=== PATIENT | male | born 1980 | race African-American/Black ===

== ENCOUNTER 2019-08-10 10:19 | Inpatient (IN) | payer OTHER ==
[2019-08-10 11:56] VITALS: BMI 22.9
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
[2019-08-10] MEDS ORDERED: hydrOXYzine PAMOATE 25 MG CAPSULE (FP) PO PRN (12:54)
[2019-08-10] MEDS ORDERED: MAG HYDROX/AL HYDROX/SIMETH 30 ML UNIT-DOSE CUP PO PRN (12:54)
[2019-08-10] MEDS ORDERED: MAGNESIUM HYDROX 2400MG/30ML ORAL SUSPENSION 30 ML CUP PO PRN (12:54)
[2019-08-10] MEDS ORDERED: MENTHOL/PHENOL 1 EACH UD MM PRN (12:54)
[2019-08-10] MEDS ORDERED: IBUPROFEN 400 MG TABLET (FP) PO PRN (12:54)
[2019-08-10] MEDS ORDERED: METHOCARBAMOL 500 MG TABLET PO PRN (12:54)
[2019-08-10] MEDS ORDERED: MAGNESIUM CITRATE 300 ML BOTTLE PO PRN (12:54)
[2019-08-10] MEDS ORDERED: BISMUTH SUBSALICYLATE 524 MG/30 ML UD PO PRN (12:54)
[2019-08-10] MEDS ORDERED: ACETAMINOPHEN 325 MG TABLET (FP) PO PRN ×2 (12:54)
[2019-08-10] MEDS ORDERED: MELATONIN 5 MG TABLETS PO PRN (12:54)
[2019-08-10] MEDS ORDERED: diazePAM 5 MG TABLET PO PRN (12:55)
--- NOTE | 2019-08-10 14:52 | EKG ---
Test Reason : Blood Pressure : / mmHG Vent. Rate : 083 BPM Atrial Rate : 083 BPM P-R Int : 154 ms QRS Dur : 088 ms QT Int : 384 ms P-R-T Axes : 072 -11 015 degrees QTc Int : 451 ms NORMAL SINUS RHYTHM LEFT ATRIAL ENLARGEMENT LEFT VENTRICULAR HYPERTROPHY INCOMPLETE RBBB SEPTAL INFARCT , AGE UNDETERMINED ABNORMAL ECG NO PREVIOUS ECGS AVAILABLE Confirmed by MD ABRAHAM, KEN ([id number]) on 08/10/2019 2:52:16 PM Referred By: ALBERTA Confirmed By:KEN ROSARIO MD
[2019-08-10] MEDS: diazePAM 5 MG TABLET PO SCH ×2 (17:10→22:17)
[2019-08-10] MEDS ORDERED: THIAMINE HCL 100 MG TABLET (FP) PO SCH (22:00)
[2019-08-11] MEDS: diazePAM 5 MG TABLET PO SCH (05:59)
[2019-08-11] MEDS ORDERED: diazePAM 5 MG TABLET PO SCH (10:00)
[2019-08-11] MEDS ORDERED: PRENATAL VITAMINS W/ FOLIC ACID TABLET (FP) PO SCH (10:00)
[2019-08-11 10:10] LABS: HEMOGLOBIN 12.7 GM/dL (11.7-16.9); MCH 32.2 pg (25.7-33.7); MCHC 33.3 g/dl (32.0-35.9); MEAN CELL VOLUME 96.7 fl (80-96); MEAN PLT VOLUME 8.3 fl (7.5-11.1); PLATELET COUNT 307 K/MM3 (134-434); RBC 3.93 M/mm3 (4.00-5.60); RDW 16.2 % (11.9-15.9); WHITE BLOOD COUNT 6.3 K/mm3 (4.0-10.0)
[2019-08-11 10:23] LABS: ALBUMIN 3.1 g/dl (3.4-5.0); BILIRUBIN,TOTAL 0.4 mg/dL (0.2-1); BLOOD UREA NITROGEN 16.4 mg/dL (7-18); CALCIUM 8.8 mg/dL (8.5-10.1); POTASSIUM 3.9 mmol/L (3.5-5.1); TOT PROT 6.4 g/dl (6.4-8.2)
--- NOTE | 2019-08-11 12:25 | PN ---
[facility] CIWA - CIWA Score Nausea/Vomitin-Mild Nausea/No Vomiting Muscle Tremors: 3 Anxiety: 2 Agitation: 2 Paroxysmal Sweats: 1-Minimal Palms Moist Orientation: 0-Oriented Tacttile Disturbances: 0-None Auditory Disturbances: 0-None Visual Disturbances: 0-None Headache: 0-None Present CIWA-Ar Total Score: 9 S COWS - Scale Resting Pulse: 0= [place] 80 or Below Sweatin= No chills or Flushing Restless Observation: 0= Sits Still Pupil Size: 0= Normal to Room Light Bone or Joint Aches: 0= None Runny Nose/ Eye Tearin= None GI Upset > 30mins: 2= Nausea/Diarrhea Tremor Observation of Outstretched Hands: 2= Slight Tremor Visible Yawning Observation: 0= None Anxiety or Irritability: 2=Irritable/Anxious Goose Flesh Skin: 0=Smooth Skin COWS Score: 6 S Progress Note (SOAP) Subjective: 28 years old male admitted on 08/10/19 for alcohol and opiate withdrawal sx management treating with valium detox regiment states that cocaine is the main drug for Mr Mayes patient is doing ok today feeling tired "I need rest" prefers to stay in bed today that "haven't slept for a while" reports in [facility] [place]note 3[facility] out patient program for addiction medical and mental care patient prefers to returning to [facility]note 3[facility] program after "resting" in detox Objective: 08/11/19 12:30 Vital Signs Temperature 97.0 F L 08/11/19 08:40 Pulse Rate 77 08/11/19 08:40 Respiratory Rate 18 08/11/19 08:40 Blood Pressure 126/92 08/11/19 08:40 O2 Sat by Pulse Oximetry (%) Laboratory Last Values WBC 6.3 K/mm3 (4.0-10.0) 08/11/19 07:30 RBC 3.93 M/mm3 (4.00-5.60) L 08/11/19 07:30 Hgb 12.7 GM/dL (11.7-16.9) 08/11/19 07:30 Hct 38.0 % (35.4-49) 08/11/19 07:30 MCV 96.7 fl (80-96) H 08/11/19 07:30 MCH 32.2 pg (25.7-33.7) 08/11/19 07:30 MCHC 33.3 g/dl (32.0-35.9) 08/11/19 07:30 RDW 16.2 % (11.9-15.9) H 08/11/19 07:30 Plt Count 307 K/MM3 (134-434) 08/11/19 07:30 MPV 8.3 fl (7.5-11.1) 08/11/19 07:30 Sodium 139 mmol/L (136-145) 08/11/19 07:30 Potassium 3.9 mmol/L (3.5-5.1) 08/11/19 07:30 Chloride 106 mmol/L (98-107) 08/11/19 07:30 Carbon Dioxide 27 mmol/L (21-32) 08/11/19 07:30 Anion Gap 5 MMOL/L (8-16) L 08/11/19 07:30 BUN 16.4 mg/dL (7-18) 08/11/19 07:30 Creatinine 1.0 mg/dL (0.55-1.3) 08/11/19 07:30 Est GFR (CKD-EPI)AfAm 110.17 08/11/19 07:30 Est GFR (CKD-EPI)NonAf 95.05 08/11/19 07:30 Random Glucose 100 mg/dL (74-106) 08/11/19 07:30 Calcium 8.8 mg/dL (8.5-10.1) 08/11/19 07:30 Total Bilirubin 0.4 mg/dL (0.2-1) 08/11/19 07:30 AST 21 U/L (15-37) 08/11/19 07:30 ALT 21 U/L (13-61) 08/11/19 07:30 Alkaline Phosphatase 49 U/L (45-117) 08/11/19 07:30 Total Protein 6.4 g/dl (6.4-8.2) 08/11/19 07:30 Albumin 3.1 g/dl (3.4-5.0) L 08/11/19 07:30 lab noted Assessment: 08/11/19 12:30 alcohol and opiate withdrawal Plan: valium regiment
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
[2019-08-11] MEDS ORDERED: diazePAM 5 MG TABLET PO PRN (12:55)
[2019-08-11 17:34] VITALS: BP 129/90; PULSE 84; TEMP 97.4
--- NOTE | 2019-08-11 19:38 | DS ---
[facility] Detox Discharge Summary Admission Date: 08/10/19 Discharge Date: 08/11/19 - History Present History: Alcohol Dependence, Opioid Dependence Additional Comments: Reqursting detox from alcohol and percocet. Pertinent Past History: Admitted w/ - Physical Exam Results Vital Signs: Vital Signs Temperature 97.4 F L 08/11/19 16:46 Pulse Rate 84 08/11/19 16:46 Respiratory Rate 20 08/11/19 16:46 Blood Pressure 129/90 08/11/19 16:46 O2 Sat by Pulse Oximetry (%) Pertinent Admission Physical Exam Findings: Patient admitted with alcohol and opioid withdrawal symptoms. MHHX : Bipolar d/o Laboratory Last Values WBC 6.3 K/mm3 (4.0-10.0) 08/11/19 07:30 RBC 3.93 M/mm3 (4.00-5.60) L 08/11/19 07:30 Hgb 12.7 GM/dL (11.7-16.9) 08/11/19 07:30 Hct 38.0 % (35.4-49) 08/11/19 07:30 MCV 96.7 fl (80-96) H 08/11/19 07:30 MCH 32.2 pg (25.7-33.7) 08/11/19 07:30 MCHC 33.3 g/dl (32.0-35.9) 08/11/19 07:30 RDW 16.2 % (11.9-15.9) H 08/11/19 07:30 Plt Count 307 K/MM3 (134-434) 08/11/19 07:30 MPV 8.3 fl (7.5-11.1) 08/11/19 07:30 Sodium 139 mmol/L (136-145) 08/11/19 07:30 Potassium 3.9 mmol/L (3.5-5.1) 08/11/19 07:30 Chloride 106 mmol/L (98-107) 08/11/19 07:30 Carbon Dioxide 27 mmol/L (21-32) 08/11/19 07:30 Anion Gap 5 MMOL/L (8-16) L 08/11/19 07:30 BUN 16.4 mg/dL (7-18) 08/11/19 07:30 Creatinine 1.0 mg/dL (0.55-1.3) 08/11/19 07:30 Est GFR (CKD-EPI)AfAm 110.17 08/11/19 07:30 Est GFR (CKD-EPI)NonAf 95.05 08/11/19 07:30 Random Glucose 100 mg/dL (74-106) 08/11/19 07:30 Calcium 8.8 mg/dL (8.5-10.1) 08/11/19 07:30 Total Bilirubin 0.4 mg/dL (0.2-1) 08/11/19 07:30 AST 21 U/L (15-37) 08/11/19 07:30 ALT 21 U/L (13-61) 08/11/19 07:30 Alkaline Phosphatase 49 U/L (45-117) 08/11/19 07:30 Total Protein 6.4 g/dl (6.4-8.2) 08/11/19 07:30 Albumin 3.1 g/dl (3.4-5.0) L 08/11/19 07:30 RPR Titer Nonreactive (NONREACTIVE) 08/11/19 07:30 Patient left unit w/o waiting for provider. Report from nurses indicated that patient was alert, oriented and in no apparent distress. - Treatment Hospital Course: Detox Protocol Followed - Medication Discharge Medications: Ambulatory Orders NK [No Known Home Medication] 08/10/19 - AMA Did Patient Leave Against Medical Advice: Yes
[2019-08-12] MEDS ORDERED: diazePAM 5 MG TABLET PO ONE (06:00)
== END 2019-08-11 18:07 | disposition left against medical advice (07) | DRG 770 ==
LOC: YASAS 10:19 → Y3N 13:38
PROVIDERS: ADMIT Allergy & Immunology; ATTEND Allergy & Immunology
PROC: HZ2ZZZZ Detoxification Services for Substance Abuse Treatment (ICD-10-PCS; principal; 2019-08-10)
DX: F10.230 Alcohol dependence with withdrawal, uncomplicated (principal); F11.23 Opioid dependence with withdrawal; F14.20 Cocaine dependence, uncomplicated; F16.10 Hallucinogen abuse, uncomplicated; F17.210 Nicotine dependence, cigarettes, uncomplicated; F19.24 Other psychoactive substance dependence with psychoactive substance-induced mood disorder; F41.9 Anxiety disorder, unspecified; F31.9 Bipolar disorder, unspecified
CPT/HCPCS: 36415; 80053; 85027; 86593; 93005; 93010

== ENCOUNTER 2020-01-06 13:09 | Inpatient (IN) | payer OTHER ==
--- NOTE | 2020-01-06 13:27 | BHS.RME ---
Substance Use & Tx History - Substance Use History Alcohol Substance amount: 1 pint luis Frequency of use: Daily Substance route: Oral Date of Last Use: 01/05/20 Heroin Substance amount: 1 bundle Frequency of use: Daily Substance route: Inhalation (ex: sniffing or snorting) Date of Last Use: 01/05/20 Cocaine- Powder Substance amount: $30 Frequency of use: Daily Substance route: Inhalation (ex: sniffing or snorting) Date of Last Use: 12/29/19 Nicotine Substance amount: 7 ciggs Frequency of use: Daily Substance route: Smoking Date of Last Use: 01/06/20 Physical/Psych/Mental Status - Behavior General Behavior: Increased activity (restlessness, agitation) Eye Contact: Normal - Cooperativeness Cooperativeness: Cooperative - Thinking Thought Processes: Tight, Logical, Goal Directed - Physical Health Problems Is patient presently having any pain?: No Does patient presently have any injuries (include location): No Does patient currently have a fever: No Is patient : No COWS - Scale Resting Pulse: 1= [place] 81-100 Sweatin= Beads of Sweat on Face Restless Observation: 1= Difficult to Sit Still Pupil Size: 1= Pupils >than Normal Bone or Joint Aches: 4=Acute Joint/Muscle Pain Runny Nose/ Eye Tearin= Runny Nose/Eyes GI Upset > 30mins: 1= Stomach Cramp Tremor Observation: 1= Tremor [place], Not Seen Yawning Observation: 0= None Anxiety or Irritability: 2=Irritable/Anxious Goose Flesh Skin: 0=Smooth Skin COWS Score: 16 CIWA Nausea/Vomitin Muscle Tremors: 2 Anxiety: 4-Mod. Anxious/Guarded Agitation: 3 Paroxysmal Sweats: 1-Minimal Palms Moist Orientation: 0-Oriented Tacttile Disturbances: 0-None Auditory Disturbances: 0-None Visual Disturbances: 0-None Headache: 2-Mild CIWA-Ar Total Score: 14
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
[2020-01-06 13:55] VITALS: BMI 21.6
[2020-01-06] MEDS ORDERED: MAGNESIUM CITRATE 300 ML BOTTLE PO PRN (13:55)
[2020-01-06] MEDS ORDERED: NICOTINE POLACRILEX 2 MG GUM BUC PRN (13:55)
[2020-01-06] MEDS ORDERED: BISMUTH SUBSALICYLATE 524 MG/30 ML UD PO PRN (13:55)
[2020-01-06] MEDS ORDERED: MAGNESIUM HYDROX 2400MG/30ML ORAL SUSPENSION 30 ML CUP PO PRN (13:55)
[2020-01-06] MEDS ORDERED: METHADONE HCL 10 MG TABLET (FOR DETOX USE ONLY) PO ONE (13:55)
[2020-01-06] MEDS ORDERED: MAG HYDROX/AL HYDROX/SIMETH 30 ML UNIT-DOSE CUP PO PRN (13:55)
[2020-01-06] MEDS ORDERED: ONDANSETRON *ODT* 4 MG TABLET SL PRN (13:55)
[2020-01-06] MEDS ORDERED: chlordiazePOXIDE HCL 25 MG CAPSULE PO PRN (13:55)
[2020-01-06] MEDS ORDERED: MENTHOL/PHENOL 1 EACH UD MM PRN (13:55)
[2020-01-06] MEDS ORDERED: ACETAMINOPHEN 325 MG TABLET (FP) PO PRN ×2 (13:55)
[2020-01-06] MEDS: hydrOXYzine PAMOATE 25 MG CAPSULE (FP) PO SCH ×3 (14:58→22:07)
[2020-01-06] MEDS: PRENATAL VITAMINS W/ FOLIC ACID TABLET (FP) PO SCH (14:59)
[2020-01-06] MEDS: NICOTINE 7 MG/24 HOURS TOPICAL PATCH TD SCH (15:00)
[2020-01-06] MEDS: IBUPROFEN 400 MG TABLET (FP) PO PRN (16:44)
[2020-01-06 16:46] LABS: HEMATOCRIT 39.8 % (35.4-49); HEMOGLOBIN 13.2 GM/dL (11.7-16.9); MCH 31.9 pg (25.7-33.7); MCHC 33.3 g/dl (32.0-35.9); MEAN CELL VOLUME 95.9 fl (80-96); MEAN PLT VOLUME 8.1 fl (7.5-11.1); PLATELET COUNT 411 K/MM3 (134-434); RBC 4.15 M/mm3 (4.00-5.60); RDW 14.2 % (11.9-15.9); WHITE BLOOD COUNT 10.6 K/mm3 (4.0-10.0)
[2020-01-06 16:59] LABS: ALBUMIN 3.7 g/dl (3.4-5.0); BILIRUBIN,TOTAL 0.4 mg/dL (0.2-1); CALCIUM 9.8 mg/dL (8.5-10.1); POTASSIUM 4.1 mmol/L (3.5-5.1); TOT PROT 8.3 g/dl (6.4-8.2)
[2020-01-06 17:00] LABS: BLOOD UREA NITROGEN 10.6 mg/dL (7-18); CREATININE 0.9 mg/dL (0.55-1.3)
[2020-01-06] MEDS: cloNIDine HCL 0.1 MG TABLET PO PRN ×2 (17:00→22:07)
[2020-01-06] MEDS: chlordiazePOXIDE HCL 25 MG CAPSULE PO SCH ×2 (17:01→22:08)
[2020-01-06] MEDS: MELATONIN 5 MG TABLETS PO SCH (22:07)
[2020-01-06] MEDS: THIAMINE HCL 100 MG TABLET (FP) PO SCH (22:07)
[2020-01-07] MEDS: chlordiazePOXIDE HCL 25 MG CAPSULE PO SCH ×4 (06:03→22:16)
[2020-01-07] MEDS: hydrOXYzine PAMOATE 25 MG CAPSULE (FP) PO SCH ×5 (06:03→22:15)
[2020-01-07] MEDS ORDERED: METHADONE HCL 5 MG TABLET (FOR DETOX USE ONLY) ONE (08:40)
[2020-01-07] MEDS ORDERED: METHADONE HCL 10 MG TABLET (FOR DETOX USE ONLY) ONE (08:40)
[2020-01-07] MEDS ORDERED: METHADONE (DETOX) 20 MG, METHADONE (DETOX) 5 MG PO ONE (10:00)
[2020-01-07] MEDS: PRENATAL VITAMINS W/ FOLIC ACID TABLET (FP) PO SCH (10:25)
[2020-01-07] MEDS: NICOTINE 7 MG/24 HOURS TOPICAL PATCH TD SCH (10:26)
--- NOTE | 2020-01-07 11:11 | PN ---
S CIWA - CIWA Score Nausea/Vomitin-No Nausea/No Vomiting Muscle Tremors: 4-Moderate,w/Arms Extend Anxiety: 4-Mod. Anxious/Guarded Agitation: 3 Paroxysmal Sweats: 2 Orientation: 0-Oriented Tacttile Disturbances: 0-None Auditory Disturbances: 0-None Visual Disturbances: 0-None Headache: 0-None Present CIWA-Ar Total Score: 13 S COWS - Scale Resting Pulse: 0= [place] 80 or Below Sweatin= Chills/Flushing Restless Observation: 0= Sits Still Pupil Size: 0= Normal to Room Light Bone or Joint Aches: 1= Mild Discomfort Runny Nose/ Eye Tearin= None GI Upset > 30mins: 0= None Tremor Observation of Outstretched Hands: 2= Slight Tremor Visible Yawning Observation: 0= None Anxiety or Irritability: 1=Feels Anxious/Irritable Goose Flesh Skin: 0=Smooth Skin COWS Score: 5 S Progress Note (SOAP) Subjective: Pt is a 39 y/o male admitted to detox for heroin and alcohol withdrawal sx. c/o Objective: 01/07/20 11:17 Vital Signs - 24 hr 01/06/20 01/06/20 01/06/20 13:53 14:38 16:35 Temperature 98.4 F 98.1 F 98.1 F Pulse Rate 71 69 82 Respiratory 18 16 18 Rate Blood Pressure 162/115 H 158/99 156/110 H O2 Sat by Pulse 96 Oximetry (%) 01/06/20 01/06/20 01/07/20 20:46 22:16 00:30 Temperature 97.3 F L Pulse Rate 67 Respiratory 18 18 Rate Blood Pressure 152/98 O2 Sat by Pulse 98 97 Oximetry (%) 01/07/20 01/07/20 01/07/20 03:30 06:00 10:40 Temperature 98.2 F 98.5 F Pulse Rate 78 69 Respiratory 18 16 16 Rate Blood Pressure 126/84 120/78 O2 Sat by Pulse 95 96 Oximetry (%) Laboratory Tests 01/06/20 01/06/20 01/06/20 13:40 13:40 13:40 WBC 10.6 H RBC 4.15 Hgb 13.2 Hct 39.8 MCV 95.9 MCH 31.9 MCHC 33.3 RDW 14.2 D Plt Count 411 D MPV 8.1 Sodium 141 Potassium 4.1 Chloride 103 Carbon Dioxide 31 Anion Gap 7 L BUN 10.6 Creatinine 0.9 Est GFR (CKD-EPI)AfAm 124.26 Est GFR (CKD-EPI)NonAf 107.21 Random Glucose 95 Calcium 9.8 Total Bilirubin 0.4 AST 16 ALT 21 Alkaline Phosphatase 58 Total Protein 8.3 H Albumin 3.7 Syphilis Serology Non-reactive covid-19 result pending Alert o x 3 nad oob ambulating with steady gait 01/07/20 11:18 Assessment: 01/07/20 11:19 withdrawal sx Plan: cont detox increase po fluids maintain safety
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
[2020-01-07] MEDS: MELATONIN 5 MG TABLETS PO SCH (22:15)
[2020-01-07] MEDS: QUEtiapine FUMARATE 100 MG TABLET (FP) PO SCH (22:15)
[2020-01-07] MEDS: THIAMINE HCL 100 MG TABLET (FP) PO SCH (22:15)
[2020-01-08 00:25] LABS: PH,URINE 5.5 (5.0-8.0); URINE APPEARANCE CLEAR; URINE BILIRUBIN NEGATIVE (NEGATIVE); URINE COLOR DK YELLOW; URINE GLUCOSE (UA) NEGATIVE (NEGATIVE); URINE KETONE TRACE (NEGATIVE); URINE LEUK ESTERASE NEGATIVE (NEGATIVE); URINE NITRITE NEGATIVE (NEGATIVE); URINE PROTEIN NEGATIVE (NEGATIVE)
[2020-01-08] MEDS: hydrOXYzine PAMOATE 25 MG CAPSULE (FP) PO SCH ×5 (06:12→22:13)
[2020-01-08] MEDS: chlordiazePOXIDE HCL 25 MG CAPSULE PO SCH ×4 (06:12→22:14)
[2020-01-08] MEDS ORDERED: METHADONE HCL 10 MG TABLET (FOR DETOX USE ONLY) PO ONE (10:00)
[2020-01-08] MEDS: NICOTINE 7 MG/24 HOURS TOPICAL PATCH TD SCH (10:01)
[2020-01-08] MEDS: PRENATAL VITAMINS W/ FOLIC ACID TABLET (FP) PO SCH (10:01)
--- NOTE | 2020-01-08 10:44 | PN ---
S CIWA - CIWA Score Nausea/Vomitin-Mild Nausea/No Vomiting Muscle Tremors: 4-Moderate,w/Arms Extend Anxiety: 3 Agitation: 3 Paroxysmal Sweats: No Perspiration Orientation: 0-Oriented Tacttile Disturbances: 0-None Auditory Disturbances: 0-None Visual Disturbances: 0-None Headache: 0-None Present CIWA-Ar Total Score: 11 [facility] Progress Note (SOAP) Subjective: C/o muscle aches tremors nausea Objective: 01/08/20 10:45 Vital Signs 01/08/20 01/08/20 03:30 06:30 Temperature 98.0 F Pulse Rate 89 Respiratory 16 16 Rate Blood Pressure 124/78 O2 Sat by Pulse 95 Oximetry (%) Laboratory Tests 01/06/20 01/06/20 01/06/20 13:40 13:40 13:40 WBC 10.6 H RBC 4.15 Hgb 13.2 Hct 39.8 MCV 95.9 MCH 31.9 MCHC 33.3 RDW 14.2 D Plt Count 411 D MPV 8.1 Sodium 141 Potassium 4.1 Chloride 103 Carbon Dioxide 31 Anion Gap 7 L BUN 10.6 Creatinine 0.9 Est GFR (CKD-EPI)AfAm 124.26 Est GFR (CKD-EPI)NonAf 107.21 Random Glucose 95 Calcium 9.8 Total Bilirubin 0.4 AST 16 ALT 21 Alkaline Phosphatase 58 Total Protein 8.3 H Albumin 3.7 Urine Color Urine Appearance Urine pH Ur Specific [place] Urine Protein Urine Glucose (UA) Urine Ketones Urine Blood Urine Nitrite Urine Bilirubin Urine Urobilinogen Ur Leukocyte Esterase Syphilis Serology Non-reactive COVID-19 (JEANINE) 01/06/20 01/07/20 14:55 21:40 WBC RBC Hgb Hct MCV MCH MCHC RDW Plt Count MPV Sodium Potassium Chloride Carbon Dioxide Anion Gap BUN Creatinine Est GFR (CKD-EPI)AfAm Est GFR (CKD-EPI)NonAf Random Glucose Calcium Total Bilirubin AST ALT Alkaline Phosphatase Total Protein Albumin Urine Color Dk yellow Urine Appearance Clear Urine pH 5.5 Ur Specific [place] 1.023 Urine Protein Negative Urine Glucose (UA) Negative Urine Ketones Trace H Urine Blood Negative Urine Nitrite Negative Urine Bilirubin Negative Urine Urobilinogen 1.0 Ur Leukocyte Esterase Negative Syphilis Serology COVID-19 (JEANINE) Not detected labs noted Alert o x 3 nad oob ambulating with steady gait Assessment: 01/08/20 10:45 withdrawal sx Plan: continue detox increase po fluids maintain safety zofran prn
[2020-01-08] MEDS: MELATONIN 5 MG TABLETS PO SCH (22:12)
[2020-01-08] MEDS: METHOCARBAMOL 500 MG TABLET PO PRN (22:13)
[2020-01-08] MEDS: THIAMINE HCL 100 MG TABLET (FP) PO SCH (22:13)
[2020-01-08] MEDS: QUEtiapine FUMARATE 100 MG TABLET (FP) PO SCH (22:13)
[2020-01-09] MEDS ORDERED: chlordiazePOXIDE HCL 10 MG CAPSULE PO PRN
[2020-01-09] MEDS: hydrOXYzine PAMOATE 25 MG CAPSULE (FP) PO SCH ×3 (05:51→13:57)
[2020-01-09] MEDS: chlordiazePOXIDE HCL 10 MG CAPSULE PO SCH ×2 (05:51→10:03)
[2020-01-09] MEDS ORDERED: METHADONE HCL 10 MG TABLET (FOR DETOX USE ONLY) ONE (09:07)
[2020-01-09] MEDS ORDERED: METHADONE HCL 5 MG TABLET (FOR DETOX USE ONLY) ONE (09:07)
[2020-01-09] MEDS ORDERED: METHADONE (DETOX) 10 MG, METHADONE (DETOX) 5 MG PO ONE (10:00)
[2020-01-09] MEDS: NICOTINE 7 MG/24 HOURS TOPICAL PATCH TD SCH (10:03)
[2020-01-09] MEDS: PRENATAL VITAMINS W/ FOLIC ACID TABLET (FP) PO SCH (10:04)
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
[2020-01-09] MEDS: METHOCARBAMOL 500 MG TABLET PO PRN (15:18)
[2020-01-09] MEDS: IBUPROFEN 400 MG TABLET (FP) PO PRN (15:18)
[2020-01-09 15:30] VITALS: BP 118/69; PULSE 90; TEMP 97.6
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
[2020-01-10] MEDS ORDERED: chlordiazePOXIDE HCL 10 MG CAPSULE PO SCH (05:00)
[2020-01-10] MEDS ORDERED: METHADONE HCL 10 MG TABLET (FOR DETOX USE ONLY) PO ONE (10:00)
[2020-01-11] MEDS ORDERED: chlordiazePOXIDE HCL 10 MG CAPSULE PO ONE (05:00)
[2020-01-11] MEDS ORDERED: METHADONE HCL 5 MG TABLET (FOR DETOX USE ONLY) PO ONE (06:00)
== END 2020-01-09 16:05 | disposition home or self-care (01) | DRG 773 ==
LOC: YASAS 13:09 → Y5N DETOX 14:15
PROVIDERS: ADMIT Allergy & Immunology; ATTEND Allergy & Immunology
PROC: HZ2ZZZZ Detoxification Services for Substance Abuse Treatment (ICD-10-PCS; principal; 2020-01-06)
DX: F10.230 Alcohol dependence with withdrawal, uncomplicated (principal); F11.23 Opioid dependence with withdrawal; F14.20 Cocaine dependence, uncomplicated; F17.210 Nicotine dependence, cigarettes, uncomplicated; F31.9 Bipolar disorder, unspecified; F19.282 Other psychoactive substance dependence with psychoactive substance-induced sleep disorder; F19.24 Other psychoactive substance dependence with psychoactive substance-induced mood disorder; F41.9 Anxiety disorder, unspecified; F39 Unspecified mood [affective] disorder; M54.5 Low back pain; Z87.828 Personal history of other (healed) physical injury and trauma; Z87.81 Personal history of (healed) traumatic fracture; Z98.890 Other specified postprocedural states; Z56.0 Unemployment, unspecified; Z59.0 Homelessness
CPT/HCPCS: 36415; 80053; 81003; 85027; 86780; J0735; U0003